=== PATIENT | female | born 1975 | race Caucasian/White ===

== ENCOUNTER 2018-04-26 13:58 | Emergency (ER) | payer OTHER, MEDICAID ==
[~2018-04-26] VITALS: Ht 162.6 cm; Wt 68.0 kg
[~2018-04-26 13:58] MED LIST: IBUPROFEN 600600 M1 PO; NOHOMEMEDICATIONS; NORCO 5-325 TA1 EACH PO; SIMETHICON CHEW80 M1 PO
[2018-04-26 15:17] VITALS: BP 119/86
== END 2018-04-26 15:19 | disposition home or self-care (01) ==
LOC: M.ERS 13:58
DX: S82.491A Other fracture of shaft of right fibula, initial encounter for closed fracture (principal); F17.210 Nicotine dependence, cigarettes, uncomplicated; Z98.890 Other specified postprocedural states; Z90.710 Acquired absence of both cervix and uterus; X50.1XXA Overexertion from prolonged static or awkward postures, initial encounter; Y93.89 Activity, other specified; Y92.89 Other specified places as the place of occurrence of the external cause; Y99.8 Other external cause status